=== PATIENT | female | born 1950 | race Caucasian/White ===

== ENCOUNTER 2016-08-13 03:51 | Emergency (ER) | payer OTHER ==
[~2016-08-13] VITALS: Ht 167.6 cm; Wt 89.1 kg
[~2016-08-13 03:51] MED LIST: DICL75TA2; DICL75TA2 PO; HYDR-3671; HYDR25TA6 PO; LORA-52; LORA-52 PO; METF500T3 PO; METF500T4; METO-448 PO; OMEP10CA2; RANI-270; VALS80TA2
[2016-08-13 03:54] VITALS: Ht 167.6 cm; Wt 89.1 kg
[2016-08-13] MEDS ORDERED: ONDANSETRON 4 MG INJ IV STA (04:16)
[2016-08-13] MEDS ORDERED: LIDOCAINE/MYLANTA 40 ML BTL PO STA (04:16)
[2016-08-13] MEDS ORDERED: SOD CHLORIDE 0.9% 1,000 ML IV STA (04:16)
[2016-08-13] MEDS ORDERED: MECLIZINE 12.5 MG TAB PO ONE ×2 (04:30→06:00)
--- NOTE | 2016-08-13 04:50 | RADRPT ---
PROCEDURE: CT BRAIN WITHOUT CONTRAST CLINICAL INDICATION: 66-year-old female with headaches. TECHNIQUE: The study was performed utilizing a [employer] VCT 64-slice CT scanner. Direct axia l sections were obtained from the foramen magnum to the vertex without the use of intravenous contra st material. Sagittal and coronal reformations were obtained. Automated exposure control and iterat micaela reconstruction techniques were utilized for this examination. The images were viewed on a PACS workstation. CTD/vol = 45.0 mGy; Total Exam DLP = 720.2 mGy-cm. COMPARISON: None. FINDINGS: The ventricles have a normal size, shape and position. There is no evidence for mass effect or midl ine shift. There are no intracranial areas of abnormal attenuation. There is no evidence for acute intra or extra-axial blood. The bony calvarium is intact. There is mild polypoidal mucosal thickeni ng within the inferior maxillary sinuses bilaterally. No air-fluid levels are noted. The mastoid a ir cells are partially sclerotic consistent with prior mastoid disease. IMPRESSION: 1. The intracranial contents are unremarkable on this noncontrast CT scan of the brain. 2. Mild polypoidal mucosal thickening inferior maxillary sinuses. .Anant Schroeder MD, MD Date Time Electronically viewed and signed by .Anant Schroeder MD, on 08/13/2016 04:50 .Conor/
[2016-08-13 05:22] LABS: BASOPHILS % 0.5 % (0.0-2.0); EOSINOPHILS # 0.2 10^3/ul (0.0-0.5); EOSINOPHILS % 2.3 % (0.0-7.0); HEMATOCRIT 36.2 % (37.0-47.0); HEMOGLOBIN 12.4 g/dl (12.0-16.0); LYMPHOCYTES # 2.3 10^3/ul (0.8-2.9); LYMPHOCYTES % 32.6 % (15.0-51.0); MEAN CORPUSCULAR HEMOGLOBIN 28.9 pg (29.0-33.0); MEAN CORPUSCULAR HGB CONC 34.3 g/dl (32.0-37.0); MEAN CORPUSCULAR VOLUME 84.2 fl (82.0-101.0); MEAN PLATELET VOLUME 11.2 fl (7.4-10.4); MONOCYTE # 0.4 10^3/ul (0.3-0.9); MONOCYTES % 5.4 % (0.0-11.0); NEUTROPHIL # 4.1 10^3/ul (1.6-7.5); NEUTROPHILS % 59.2 % (39.0-77.0); PLATELET COUNT 167 10^3/UL (140-440); POTASSIUM 3.5 mmol/L (3.5-5.1); RED CELL DISTRIBUTION WIDTH 13.6 % (11.5-14.5)
[2016-08-13 05:25] LABS: CALCIUM 8.8 mg/dl (8.4-10.2); CONDITION 1; CREATININE 0.93 mg/dl (0.44-1.00)
--- NOTE | 2016-08-13 05:41 | ERD ---
ER Documentation Chief Complaint Date/Time DATE: 08/13/16 TIME: 05:35 Chief Complaint NV, vertigo HPI This is a 66-year-old female who stated that she rolled over in bed to get up to go to the restroom and when she states she started spinning severely and suddenly. No prior history of vertigo. She said the room is spinning very fast and strong. She says she vomited twice nonbilious nonbloody because of the spinning. She says she has a dull diffuse headache but no focal neurological complaints such as numbness weakness visual change or speech change. She says she has some mild epigastric burning after vomiting but it is improved. She says if she holds her head still the spinning will stop but any movement of her head will make the spinning began again. ROS All systems reviewed and are negative except as per history of present illness. Medications Home Meds Reported Medications Hydrochlorothiazide (Hydrochlorothiazide) 25 Mg Tablet, 25 MG PO DAILY 11/02/11 Diclofenac Sodium* (Diclofenac Sodium*) 75 Mg Tablet.dr, 75 MG PO DAILY 11/02/11 Loratadine (Alavert) 10 Mg Tablet, 10 MG PO DAILY 11/02/11 Metoprolol Tartrate* (Lopressor*) 25 Mg Tab, 25 MG PO DAILY 11/02/11 Metformin* (Glucophage* XR) 500 Mg Tab.sr.24h, 500 MG PO DAILY 11/02/11 Metformin* (Glucophage*) 500 Mg Tab 04/21/10 Diclofenac Sodium* (Diclofenac Sodium*) 75 Mg Tablet.dr 04/21/10 Loratadine (Alavert) 10 Mg Tablet 04/21/10 Valsartan* (Diovan*) 80 Mg Tablet 04/21/10 Ranitidine Hcl (Zantac) 150 Mg Tablet 04/21/10 Hydralazine Hcl* (Apresoline*) 25 Mg Tab 04/21/10 Omeprazole* (Prilosec*) 10 Mg Cap 04/21/10 Allergies Allergies: Coded Allergies: No Known Drug Allergies (Verified Allergy, Unknown, 04/21/10) PMhx/Soc History of Surgery: No Anesthesia Reaction: No Hx Neurological Disorder: No Hx Respiratory Disorders: No Hx Cardiac Disorders: Yes (HTN) Hx Psychiatric Problems: No Hx Miscellaneous Medical Probl: No Hx Alcohol Use: No Hx Substance Use: No Hx Tobacco Use: No Smoking Status: Unknown if ever smoked FmHx Family History: No coronary disease Physical Exam Vitals Vital Signs Date Time Temp Pulse Resp B/P Pulse Ox O2 Delivery O2 Flow Rate FiO2 08/13/16 03:54 97.6 60 18 202/95 93 Physical Exam Const: Well-developed, well-nourished Head: Atraumatic, normocephalic Eyes: Normal Conjunctiva, PERRLA, EOMI, normal sclera, no nystagmus ENT: Normal External Ears, Nose and Mouth, moist mucus membranes. Neck: Full range of motion. No meningismus, no lymphadenopathy. Resp: Clear to auscultation bilaterally, no wheezing, rhonchi, rales Cardio: Regular rate and rhythm, no murmurs, S1 S2 present Abd: Soft, non tender x 4, non distended. Normal bowel sounds, no guarding or rebound, no pulsitile abdominal masses or bruits Skin: No petechiae or rashes, no ecchymosis , no maculopapular rash Back: No midline or flank tenderness Ext: No cyanosis, or edema, FROM x 4, normal inspection, neurovascularly intact x 4 Neur: Awake and alert, STR 5/5 x 4, sensation intact x 4, no focal findings, cerebellum intact, any movement of the stretcher returning the patient 's head will induce very strong vertigo. Patient cannot tolerate Hallpike procedure. Psych: Normal Mood and Affect Result Diagram: 08/13/16 0420 08/13/16 0420 Results 24 hrs Laboratory Tests Test 08/13/16 04:20 Anion Gap 19 Basophils # 0.010^3/ul Basophils % 0.5% Blood Morphology Comment Blood Urea Nitrogen 24mg/dl Calcium Level 8.8mg/dl Carbon Dioxide Level 26mmol/L Chloride Level 103mmol/L Creatinine 0.93mg/dl Eosinophils # 0.210^3/ul Eosinophils % 2.3% Glucose Level 143mg/dl Hematocrit 36.2% Hemoglobin 12.4g/dl Lymphocytes # 2.310^3/ul Lymphocytes % 32.6% Mean Corpuscular Hemoglobin 28.9pg Mean Corpuscular Hemoglobin Concent 34.3g/dl Mean Corpuscular Volume 84.2fl Mean Platelet Volume 11.2fl Monocytes # 0.410^3/ul Monocytes % 5.4% Neutrophils # 4.110^3/ul Neutrophils % 59.2% Nucleated Red Blood Cells # 0.010^3/ul Nucleated Red Blood Cells % 0.0/100WBC Platelet Count 36673^3/UL Potassium Level 3.5mmol/L Red Blood Count 4.3010^6/ul Red Cell Distribution Width 13.6% Sodium Level 144mmol/L White Blood Count 7.010^3/ul Current Medications Medications (Trade) Dose Ordered Sig/Matthew Route PRN Reason Start Time Stop Time Status Last Admin Dose Admin Sodium Chloride (NS) 1,000 ml @ 1,000 mls/hr Q1H STAT IV 08/13/16 04:16 08/13/16 05:15 DC 08/13/16 04:28 Ondansetron HCl (Zofran Inj) 4 mg ONCE STAT IV 08/13/16 04:16 08/13/16 04:18 DC 08/13/16 04:28 Miscellaneous Medication (Gi Cocktail (2)) 40 ml ONCE STAT PO 08/13/16 04:16 08/13/16 04:18 DC 08/13/16 04:28 Meclizine HCl (Antivert) 25 mg ONCE ONCE PO 08/13/16 04:30 08/13/16 04:31 DC 08/13/16 04:28 Procedures/MDM PROCEDURE: CT BRAIN WITHOUT CONTRAST CLINICAL INDICATION: 66-year-old female with headaches. TECHNIQUE: The study was performed utilizing a [employer] VCT 64-slice CT scanner. Direct axial sections were obtained from the foramen magnum to the vertex without the use of intravenous contrast material. Sagittal and coronal reformations were obtained. Automated exposure control and iterative reconstruction techniques were utilized for this examination. The images were viewed on a PACS workstation. CTD/vol = 45.0 mGy; Total Exam DLP = 720.2 mGy- cm. COMPARISON: None. FINDINGS: The ventricles have a normal size, shape and position. There is no evidence for mass effect or midline shift. There are no intracranial areas of abnormal attenuation. There is no evidence for acute intra or extra-axial blood. The bony calvarium is intact. There is mild polypoidal mucosal thickening within the inferior maxillary sinuses bilaterally. No air-fluid levels are noted. The mastoid air cells are partially sclerotic consistent with prior mastoid disease. IMPRESSION: 1. The intracranial contents are unremarkable on this noncontrast CT scan of the brain. 2. Mild polypoidal mucosal thickening inferior maxillary sinuses. .Anant Schroeder MD, Date Time Electronically viewed and signed by .Anant Schroeder MD, on 08/13/2016 04:50 .M/ CC: MIKE ELKINS DO Patient was given 25 mg of Antivert p.o. She says her vertigo is better but still there. I will treat her with 10 mg of Valium IV as well as Antivert 12.5 mg p.o. We will observe her and if she feels better we will discharge her home on Valium and Antivert Strongly feel her symptomatology is consistent with the peripheral vertigo. The vertigo was sudden and severe causing nausea vomiting. In the ER here she cannot move her head without inducing spinning. She has no focal neurological complaints to suggest acute stroke. CAT scan of brain demonstrates no acute pathology Departure Diagnosis: Primary Impression: Vertigo Condition: Stable MIKE ELKINS DO Aug 13, 2016 05:41
[2016-08-13] MEDS ORDERED: DIAZ10TA4 PO (05:43)
[2016-08-13] MEDS ORDERED: MECL-77 PO (05:43)
[2016-08-13] MEDS ORDERED: ONDA4TAB14 PO (05:43)
[2016-08-13 06:00] VITALS: BP 149/69; PULSE 62; RESP 15
[2016-08-13] MEDS ORDERED: DIAZEPAM 5 MG/ML SYG IV ONE (06:00)
== END 2016-08-13 09:01 | disposition home or self-care (01) ==
LOC: E/R 03:51
DX: R42 Dizziness and giddiness (principal); I10 Essential (primary) hypertension; R11.2 Nausea with vomiting, unspecified; J45.909 Unspecified asthma, uncomplicated; E11.9 Type 2 diabetes mellitus without complications; Z79.84 Long term (current) use of oral hypoglycemic drugs
CPT/HCPCS: 70450; 80048; 85025; J2405; J3360; J7030; 36415; 96374; 96375